=== PATIENT | female | born 1965 | race Caucasian/White ===

== ENCOUNTER → 2018-03-03 08:36 | Outpatient (POV) | payer BC, SELFPAY | PROVIDERS: Visit Provider Dermatology | DX: Z00.00 Encounter for general adult medical examination without abnormal findings (principal) ==

== ENCOUNTER → 2018-09-28 15:44 | Outpatient (CLI) | payer BC, SELFPAY ==
--- NOTE | 2018-09-28 15:45 | MM_ITS ---
MM Dig screening mamm BI w/CAD ORDERING PHYSICIAN : Chuck Santiago MD PATIENT AGE: 53 years GENDER: Female COMPARISON: July 2017 and April 2016 INDICATION: ITS.REASON: Routine Screening Mammogram no hormones. No new complaints. Noncontributory family history. TECHNIQUE: Standard CC and MLO images were obtained. R2 CAD reviewed. FINDINGS: Generalized fatty replacement Low-density breast bilaterally with no dominant mass nor suspicious cavitation either breast. No significant new findings. Bilateral follow-up in one year recommended. RIGHT BREAST:Minor nodular density at the retroareolar region of the right is stable since previous studies LEFT BREAST: But stable. No areas of concern. IMPRESSION: Stable bilateral mammogram. No new areas concern. Low-density fatty breast BI-RADS Category: 1 Negative RECOMMENDED FOLLOW-UP: 1YR 1 YEAR FOLLOW-UP (A letter has been sent to the patient regarding results of the study.)
== END ==
PROVIDERS: PCP Nurse Practitioner Obstetrics & Gynecology; Visit Provider Nurse Practitioner Obstetrics & Gynecology
DX: Z12.31 Encounter for screening mammogram for malignant neoplasm of breast (principal)
CPT/HCPCS: 77067

== ENCOUNTER → 2018-12-20 10:31 | Outpatient (POV) | payer BC, SELFPAY | PROVIDERS: Visit Provider Dermatology | DX: Z00.00 Encounter for general adult medical examination without abnormal findings (principal) ==

== ENCOUNTER → 2019-10-11 15:18 | Outpatient (CLI) | payer BC, SELFPAY ==
--- NOTE | 2019-10-11 15:19 | MM_ITS ---
PROCEDURE: MM DIG SCREENING MAMM BI W/CAD CLINICAL INDICATION: Routine Screening Mammogram There is no personal or family history of breast cancer. COMPARISON: [facility] DIG MAMM-SCREEN GIUSEPPE from 05/06/2016 [facility] DIG MAMM-SCREEN GIUSEPPE W/CAD from 08/18/2017 [facility] MM Dig screening mamm BI w/CAD from 09/28/2018 TECHNIQUE: Standard CC and MLO images were obtained. R2 CAD reviewed. FINDINGS: The breasts are composed primarily of fat with minimal scattered fibroglandular densities in each breast. There is a benign-appearing microcalcification right breast. There is no new or suspicious lesion in the breast and no suspicious microcalcifications. IMPRESSION: Fatty type breast parenchyma with no suspicious lesions seen BI-RAD Category: 2 Benign Finding(s) FOLLOW-UP: 1 Year Follow-up (A letter has been sent to the patient regarding results of the study.) Dictated by: Dr. Jan Garza MD 10/12/2019 15:[address] Jan Garza MD in [place] 10/12/2019 15:08
== END ==
PROVIDERS: PCP Physician Assistant; Visit Provider Nurse Practitioner Obstetrics & Gynecology
DX: Z12.31 Encounter for screening mammogram for malignant neoplasm of breast (principal)
CPT/HCPCS: 77067

== ENCOUNTER → 2020-10-16 10:47 | Outpatient (CLI) | payer BC, SELFPAY ==
--- NOTE | 2020-10-16 10:47 | MM_ITS ---
PROCEDURE: MM DIG SCREENING MAMM BI W/CAD Digital Breast Tomosynthesis Included CLINICAL INDICATION: screening xmg There is no personal or family history of breast cancer. The patient currently is on Premarin and estrogen. COMPARISON: MG [facility] DIG MAMM-SCREEN GIUSEPPE W/CAD from 08/18/2017 MG [facility] MM Dig screening mamm BI w/CAD from 09/28/2018 MG MM DIG SCREENING MAMM BI W/CAD from 10/11/2019 TECHNIQUE: Standard CC and MLO images and 3D Tomosynthesis was obtained. R2 CAD reviewed. FINDINGS: The breasts are composed primarily of fat with minimal scattered fibroglandular densities in each breast. There is a benign-appearing calcification in each breast. There is no suspicious lesion and no suspicious microcalcifications. IMPRESSION: The parenchyma with no suspicious lesions seen BI-RAD Category: 2 Benign Finding(s) FOLLOW-UP: 1YR 1 Year Follow-up (A letter has been sent to the patient regarding results of the study.) Dictated by: Dr. Jan Garza MD 10/19/2020 09:29 Dr. Jan Garza MD in [place] 10/19/2020 09:29
== END ==
PROVIDERS: PCP Physician Assistant; Visit Provider Nurse Practitioner Obstetrics & Gynecology
DX: Z12.31 Encounter for screening mammogram for malignant neoplasm of breast (principal)
CPT/HCPCS: 77063; 77067

== ENCOUNTER → 2020-11-06 10:24 | Outpatient (CLI) | payer BC, SELFPAY ==
--- NOTE | 2020-11-06 10:31 | XR_ITS ---
PROCEDURE: XR CERVICAL SPINE 2V CLINICAL INDICATION: NECK PAIN COMPARISON: No exams were available for comparison FINDINGS: No fracture or dislocation. No lytic or blastic change. There is normal mineralization. There is straightening of the cervical lordosis. There is mild degenerative disc disease at C5-C6. Other findings:None. IMPRESSION: Straightening of lordosis with mild degenerative disc disease at C5-C6 Dictated by: Renard Jones MD 11/06/2020 16:23 Renard Jones MD in [place] 11/06/2020 16:23
== END ==
PROVIDERS: PCP Physician Assistant; Visit Provider Physician Assistant
DX: M54.2 Cervicalgia (principal)
CPT/HCPCS: 72040

== ENCOUNTER → 2021-10-15 08:07 | Outpatient (CLI) | payer BC, SELFPAY ==
[2021-10-15 09:16] LABS: Free T4 (Free Thyroxine) 1.08 ng/dl (0.78-2.19)
[2021-10-15 09:27] LABS: Thyroid Stimulating Hormone 3.23 uIU/mL (0.465-4.68)
[2021-10-15 22:06] LABS: Chol/HDL Ratio 4.6 (1-3.5); Cholesterol 230 mg/dl (140-200); HDL Cholesterol 50 mg/dl (40-60); Triglycerides 190 mg/dl (30-150); VLDL Cholesterol 38 mg/dL (0-40)
== END ==
PROVIDERS: Physician Assistant; Visit Provider Internal Medicine
DX: E03.9 Hypothyroidism, unspecified (principal); E78.2 Mixed hyperlipidemia
CPT/HCPCS: 36415; 80061; 84439; 84443

== ENCOUNTER → 2021-10-29 12:50 | Outpatient (CLI) | payer BC, SELFPAY ==
--- NOTE | 2021-10-29 12:50 | MM_ITS ---
PROCEDURE INFORMATION: Exam: MG Bilateral Screening 3D Mammography Exam date and time: 10/29/2021 12:50 PM Age: 56 years old Clinical indication: Encounter for screening mammogram for malignant neoplasm of breast; Additional info: Abnormal xmg TECHNIQUE: Imaging protocol: Bilateral screening tomosynthesis and 2D mammography including computer-aided detection (CAD) when performed. COMPARISON: 1. MG MM DIG SCREENING MAMM BI W/CAD 10/16/2020 10:50 AM 2. MG MM DIG SCREENING MAMM BI W/CAD 10/11/2019 3:32 PM 3. MG [facility] MM Dig screening mamm BI w/CAD 09/28/2018 4:24 PM FINDINGS: MAMMOGRAPHY: Breast composition: There are scattered areas of fibroglandular density. Mass: No suspicious masses. Architectural distortion: No suspicious distortion. Calcifications: No suspicious calcifications. Asymmetric density: None. Skin thickening: None. Axillary adenopathy: None. IMPRESSION: No mammographic evidence of malignancy. Annual screening is recommended unless otherwise clinically indicated. ASSESSMENT: BI-RADS Category 1: Negative
== END ==
PROVIDERS: PCP Physician Assistant; Visit Provider Nurse Practitioner Obstetrics & Gynecology
DX: Z12.31 Encounter for screening mammogram for malignant neoplasm of breast (principal)
CPT/HCPCS: 77063; 77067

== ENCOUNTER → 2022-03-04 11:11 | Outpatient (CLI) | payer BC, SELFPAY ==
[2022-03-04 13:53] LABS: Free T4 (Free Thyroxine) 1.23 ng/dl (0.78-2.19)
== END ==
PROVIDERS: Visit Provider Internal Medicine
DX: E03.9 Hypothyroidism, unspecified (principal)
CPT/HCPCS: 36415; 84439; 84443

== ENCOUNTER → 2022-09-09 08:10 | Outpatient (CLI) | payer BC, SELFPAY ==
[2022-09-09 08:58] LABS: Basophils # 0.1 K/mm3 (0-0.2); Basophils % 1.6 % (0.1-2.0); Eosinophils # 0.1 K/mm3 (0.0-0.4); Eosinophils % 3.2 % (0.1-12.0); Hemoglobin 14.7 g/dL (12.2-16.2); Lymphocytes # 1.5 K/mm3 (0.7-4.5); Lymphocytes % 33.7 % (10-50); Mean Corpuscular HGB Conc 32.6 g/dL (31.8-35.4); Mean Corpuscular Hemoglobin 28.6 pg (27.0-31.2); Mean Corpuscular Volume 87.6 fl (81-99); Mean Platelet Volume 7.8 fl (7.4-10.4); Monocytes # 0.3 K/mm3 (0.1-1.0); Monocytes % 6.4 % (1.7-9.3); Neutrophils # 2.5 K/mm3 (1.8-7.8); Neutrophils % 55.1 % (37.0-80.0); Platelet Count 247 K/mm3 (142-424); Red Blood Count 5.14 M/mm3 (4.20-5.40); Red Cell Distribution Width 14.2 % (11.5-17.5); White Blood Count 4.6 K/mm3 (4.8-10.8)
[2022-09-09 09:40] LABS: Chloride 102 mmol/L (98-107); Potassium 4.6 mmoL/L (3.5-5.1); Sodium 139 mmol/L (136-145)
[2022-09-09 09:42] LABS: Alanine Aminotransferase 21 U/L (12-78); Alkaline Phosphatase 98 U/L (38-126); Aspartate Amino Transferase 23 U/L (14-36); Blood Urea Nitrogen 19 mg/dl (7-17); Estimated Glomerular Filt Rate 86 ml/min (>60); GFR (African American) 104 ML/MIN (>60)
[2022-09-09 09:43] LABS: Albumin Level 4.3 g/dl (3.5-5.0); Albumin/Globulin Ratio 1.5 (1.1-1.8); Anion Gap 12.6 mEq/L (5-15); Bilirubin,Total 0.1 mg/dl (0.2-1.3); Calcium 9.2 mg/dl (8.4-10.2); Carbon Dioxide 29 mmol/L (22.0-30.0); Cholesterol 292 mg/dl (140-200); Globulin 2.8 g/dL (1.3-3.2); Glucose 97 mg/dl (74-100); Total Protein,Serum 7.1 g/dl (6.3-8.2); Triglycerides 177 mg/dl (30-150); VLDL Cholesterol 35 mg/dL (0-40)
[2022-09-09 09:54] LABS: Direct LDL Cholesterol 145.18 mg/dL (100-129)
[2022-09-09 10:00] LABS: Free T4 (Free Thyroxine) 1.08 ng/dl (0.78-2.19)
[2022-09-09 10:57] LABS: Thyroid Stimulating Hormone 0.75 uIU/mL (0.465-4.68)
[2022-09-09 11:16] LABS: Vitamin B12 974 pg/mL (239-931)
[2022-09-09 12:13] LABS: HDL Cholesterol 58 mg/dl (40-60)
== END ==
PROVIDERS: Physician Assistant; PCP Family Medicine; Visit Provider Internal Medicine
DX: E03.9 Hypothyroidism, unspecified (principal); I10 Essential (primary) hypertension; E78.1 Pure hyperglyceridemia; E53.8 Deficiency of other specified B group vitamins
CPT/HCPCS: 36415; 80053; 80061; 82607; 84439; 84443; 85025

== ENCOUNTER → 2022-11-04 12:45 | Outpatient (CLI) | payer BC, SELFPAY ==
--- NOTE | 2022-11-04 12:46 | MM_ITS ---
PROCEDURE INFORMATION: Exam: MG Bilateral Screening 3D Mammography Exam date and time: 11/04/2022 12:47 PM Age: 57 years old Clinical indication: Screening examination TECHNIQUE: Imaging protocol: Bilateral Screening tomosynthesis and 2D mammography including computer-aided detection (CAD) when performed. COMPARISON: 1. MG MM DIG SCREENING MAMM BI W/CAD 10/29/2021 1:02 PM 2. MG MM DIG SCREENING MAMM BI W/CAD 10/16/2020 10:50 AM FINDINGS: MAMMOGRAPHY: Breast composition: The breasts are almost entirely fatty. Mass: None. Architectural distortion: None. Calcifications: No suspicious calcifications. Asymmetric density: None. Skin thickening: None. Axillary adenopathy: None. IMPRESSION: No mammographic evidence of malignancy. Annual screening is recommended unless otherwise clinically indicated. ASSESSMENT: BI-RADS Category 1: Negative
== END ==
PROVIDERS: PCP Family Medicine; Visit Provider Nurse Practitioner Obstetrics & Gynecology
DX: Z12.31 Encounter for screening mammogram for malignant neoplasm of breast (principal)
CPT/HCPCS: 77063; 77067

== ENCOUNTER → 2023-03-06 11:20 | Outpatient (CLI) | payer BC, SELFPAY ==
[2023-03-06 13:45] LABS: Free T4 (Free Thyroxine) 1.16 ng/dl (0.78-2.19)
[2023-03-06 14:00] LABS: Thyroid Stimulating Hormone 1.31 uIU/mL (0.465-4.68)
== END ==
PROVIDERS: PCP Physician Assistant; Visit Provider Internal Medicine
DX: E03.9 Hypothyroidism, unspecified (principal)
CPT/HCPCS: 36415; 84439; 84443

== ENCOUNTER 2023-12-29 14:30 | Outpatient (CLI) | payer BC, SELFPAY ==
--- NOTE | 2023-12-29 14:32 | MM_ITS ---
PROCEDURE INFORMATION: Exam: MG Bilateral Screening 3D Mammography Exam date and time: 12/29/2023 2:26 PM Age: 58 years old Clinical indication: Screening examination TECHNIQUE: Imaging protocol: Bilateral Screening tomosynthesis and 2D mammography including computer-aided detection (CAD) when performed. COMPARISON: 1. MG MM DIG SCREENING MAMM BI W/CAD 11/04/2022 12:47 PM 2. MG MM DIG SCREENING MAMM BI W/CAD 10/29/2021 1:02 PM FINDINGS: MAMMOGRAPHY: Breast composition: The breasts are almost entirely fatty. Mass: None. Architectural distortion: None. Calcifications: No suspicious calcifications. Asymmetric density: None. Skin thickening: None. Axillary adenopathy: None. IMPRESSION: No mammographic evidence of malignancy. Annual screening is recommended unless otherwise clinically indicated. ASSESSMENT: BI-RADS Category 1: Negative
== END 2023-12-29 23:59 ==
LOC: RAD 14:32
PROVIDERS: PCP Physician Assistant; Visit Provider Nurse Practitioner Obstetrics & Gynecology
DX: Z12.31 Encounter for screening mammogram for malignant neoplasm of breast (principal)
CPT/HCPCS: 77063; 77067

== ENCOUNTER 2024-01-17 13:10 | Outpatient (CLI) | payer BC, SELFPAY ==
[2024-01-17 13:16] LABS: Microscopic, Urine URINE MICROSCOPIC (MICROSCOPIC)
[2024-01-17 14:35] LABS: Appearance,Urine CLOUDY (Clear); Bilirubin,Urine Negative (Negative); Blood, Urine 3+ (Negative); Color,Urine YELLOW (Yellow); Glucose,Urine (UA) Negative (Negative); Ketones,Urine Negative (Negative); Leukocyte Esterase,Urine 1+ (Negative); Nitrate,Urine POSITIVE (Negative); Protein,Urine 2+ (Negative); Specific Gravity, Urine >= 1.030 (1.005-1.030)
[2024-01-17 16:28] LABS: Bacteria,Urine 2+ /lpf; RBC,Urine 20-50 #/hpf (0-3)
== END 2024-01-17 23:59 ==
LOC: LAB 13:10
PROVIDERS: PCP Physician Assistant; Visit Provider Nurse Practitioner Obstetrics & Gynecology
DX: N39.0 Urinary tract infection, site not specified (principal); B96.29 Other Escherichia coli [E. coli] as the cause of diseases classified elsewhere
CPT/HCPCS: 81001; 87086

== ENCOUNTER 2024-05-31 14:51 | Outpatient (CLI) | payer BC, SELFPAY | END 2024-05-31 23:59 | disposition home or self-care (01) | LOC: RT 14:51 | PROVIDERS: PCP Physician Assistant; Visit Provider Nurse Practitioner Family | DX: R07.89 Other chest pain (principal); R06.02 Shortness of breath; R00.2 Palpitations; R94.31 Abnormal electrocardiogram [ECG] [EKG] | CPT/HCPCS: 93270 ==

== ENCOUNTER 2024-06-21 10:50 | Outpatient (CLI) | payer BC, SELFPAY ==
--- NOTE | 2024-06-21 11:07 | CA_ITS ---
FINAL REPORT CLINICAL HISTORY: .HTN COMPARISON: None FINDINGS: RIGHT CAROTID: CCA PSV -54 cm/sec ICA PSV -102 cm/sec ICA/CCA PSV ratio -1.98. Comments: Mild plaque disease is noted. LEFTCAROTID: CCA PSV -71. cm/sec ICA PSV -94. cm/sec ICA/CCA PSV ratio -1.96. Comments: Mild plaque disease is noted. Antegrade flow is seen within the vertebral arteries. IMPRESSION: Carotid stenosis classified less than 50% Reviewed, Interpreted and Dictated by Cassius Massey MD Transcribed by Teena Willingham Authenticated and [facility]
== END 2024-06-21 23:59 | disposition home or self-care (01) ==
LOC: RT 10:51
PROVIDERS: PCP Physician Assistant; Visit Provider Nurse Practitioner Family
DX: I20.89 Other forms of angina pectoris (principal); I10 Essential (primary) hypertension; R07.9 Chest pain, unspecified; R06.02 Shortness of breath
CPT/HCPCS: 93880

== ENCOUNTER 2024-06-22 06:21 | Outpatient (CLI) | payer BC, SELFPAY ==
--- NOTE | 2024-06-22 | CA_ITS ---
APPROVED REPORT Exam: Exercise Treadmill Technologist: Brie Castellanos, Ht: 5 ft 6 in Wt: 245 lbs BSA: 2.18 m2 HR: 80 bpm BP: 146/77 mmHg Medical History Medications: Aspirin,,,,, Synthroid,,,,, Losartan,,,,, Vit D3,,,,, B12,,,,, Magnesium OXIDE,,,,, RoSUVASTATIN,,,,, Omepazole,,,,, Vascepa,,,,, DuPILUMAB,,,,, Venlafaxine eR,,,,, WEgovy,,,,, Stress Test Details Test: Momo HR Resting HR: 100 bpm Max Heart Rate (APMHR): 161 bpm Max HR Achieved: 156 bpm Target HR (85% APMHR): 137 bpm % of APMHR: 97 Recovery HR: 100 bpm HR response to stress: Normal HR response to stress BP Resting BP: 125.0/80.0 mmHg Max BP: 197.0/84.0 mmHg Recovery BP: 167.0/73.0 mmHg BP response to stress: Normal blood pressure response to stress. ECG Resting ECG: NSR Stress EC.[address] depression Arrhythmia: None Clinical Exercise duration: 06:32 min Highest Stage Achieved: III Exercise capacity: 7.0 METs Overall Exercise Capacity for Age: Average Stress ECG Conclusion Walked 6:32 on Momo Protocol. Max HR: 156 % of PM: 97% Max BP: 197/84 METs: 7.0 Test stopped due to: SOA Symptoms: No CP. Arrhythmias/Ectopy: None ST-T Changes: 0.[address] depression Conclusion: Average exercise capacity. ECG demonstrating no evidence of ischemia at peak stress. Normal GXT. Myoview images reported separately. Test Summary REST . . . . . . . Sitting REST . . . . . . . Standing REST 04:35 0.0 0.0 100 . 125/ 80 . . Stage 1 01:00 10.0 1.7 112 . . . . Stage 1 02:00 10.0 1.7 123 . . . . Stage 1 03:00 10.0 1.7 127 . 168/ 82 . . Stage 2 01:00 12.0 2.5 140 . . . . Stage 2 02:00 12.0 2.5 144 . . . . Stage 2 03:00 12.0 2.5 149 . . . . Stage 3 00:32 14.0 3.4 155 . . . Stop exercise at 06:32 RECOVERY 01:00 0.0 0.0 136 . . . . RECOVERY 02:00 0.0 0.0 115 . . . . RECOVERY 03:00 0.0 0.0 104 . 197/ 84 . . RECOVERY 04:00 0.0 0.0 98 . 186/ 79 . . RECOVERY 05:00 0.0 0.0 100 . 186/ 79 . . RECOVERY 05:35 0.0 0.0 94 . 167/ 73 . . Electronically signed by : Katie Santo MD 06/22/2024 12:01:43
--- NOTE | 2024-06-22 06:21 | CA_ITS ---
APPROVED REPORT EXAM: Comprehensive 2D, Doppler, and color-flow Echocardiogram Integration Engineer: Krystal Osuna CRT Ht: 5 ft 6 in Wt: 245lbs BSA: 2.18 BP: 151/88 mmHg Indications: Abnormal ECG, Chest Pain, Shortness of Breath, Palpitations, Hyperlipidemia, Hypertension/HDD 2D Dimensions Left Atrium 3.62 cm LVEF (Murray's) 57.60 % LVOT 1.91 cm (M/F) 1.5-2.5 LV Volume 59.90 mL LA Volume 22.00 mL LA Volume Index 10.10 mL/m2 (M/F) 16-34 EF AP4 59.80 % EF AP2 51.0 % EF BP 57.6 % GL Strain -18.6 % M-Mode Dimensions RVDd 2.45 cm (0.9-2.6) LVDd 4.41 cm (3.5-5.7) Ao Diam 3.57 cm (2.0-3.7) LVDs 3.23 cm (3.5-5.7) IVSd 0.98 cm (0.6-1.1) PWd 1.05 cm (0.6-1.1) EF (Teich) 52.50% FS 26.80% EDV (Teich) 88.20 mL TAPSE 2.04 (<1.7) ESV (Teich) 41.90 mL LV Diastology E Decel Time 181 (160-240 msec) E/A Ratio 0.50 MED E' 6.9 (>= 7 cm/sec) MED A' 10.20 cm/s E'/MED E' Ratio 7.07 (<= 14) LAT E' 7.4 (>= 10 cm/sec) LAT A' 10.10 cm/s E/LAT E' Ratio 6.59 (<= 14) Aortic Valve AoV Peak Alfonso. 156.0 (50-130 cm/s) AO Peak GR. 9.80 mmHg Mitral Valve MV E Max Alfonso. 49.0 (40-130 cm/s) MV A Velocity 97.0 (40-130 cm/s) E/A Ratio 0.50 MV Decel. Time 181 (160-240 ms) Tricuspid Valve TR P. Velocity 194.00 cm/s RAP Estimate 10.00 mmHg RVSP 25.10 mmHg Left Ventricle The left ventricle is normal size. The left ventricular systolic function is normal. The left ventricular ejection fraction is within the normal range. There is increased LV wall thickness. There is normal LV segmental wall motion. Transmitral Doppler flow pattern suggests impaired LV relaxation. LVEF is 60%. Right Ventricle The right ventricle is normal size. The right ventricular systolic function is normal. Atria The left atrium size is normal. The right atrium size is normal. There is no Doppler evidence of interatrial shunt. Aortic Valve The aortic valve opens well. There is no aortic valvular stenosis. No aortic regurgitation is present. Mitral Valve The mitral valve is normal in structure. No evidence of mitral valve stenosis. Mild mitral regurgitation. Tricuspid Valve The tricuspid valve leaflets are thin and pliable. Trace tricuspid regurgitation. There is insufficient TR jet to estimate RVSP. Pulmonic Valve The pulmonary valve is normal in structure. Trace pulmonic regurgitation. Great Vessels The aortic root is normal in size. The ascending aorta is not well-visualized. IVC is normal in size and collapses >50% with inspiration. Pericardium There is no pericardial effusion. Other Information Study Quality: Fair Conclusion Normal biventricular systolic function. Mild MR. Electronically signed by : Katie Santo MD 06/22/2024 11:47:50
--- NOTE | 2024-06-22 06:25 | NM_ITS ---
APPROVED REPORT Exam: Nuclear Stress Test Indication: soa..palpitationsa..fatigue Patient Location: Outpatient Stress Tech: Brie SEBASTIAN Tech:Latasha TravisZENAIDA RT(R)(N) Ht: 5 ft 6 in Wt: 235 lbs Bra Size: 40d HR: 100 bpm BP: 125/80 mmHg BSA: 2.14 m2 TID: 0.99 BMI: 37.9 History: soa..palpitationsa..fatigue Procedure: Patient exercised on Momo protocol 6:32 minutes and sec, resting heart rate 100 bpm, resting blood pressure 125/80 mmHg, with exercise maximum heart rate achived was 156 bpm which is 97 % of the maximum predicted heart rate and blood pressure was 197/84 mmHg. Test was stopped due to fatigue. Patient denied any complaint of chest pain. Patient has exercise capacity, achieved 7.0 METs of workload on treadmill, the blood pressure response to exercise was . Cardiac Stress and Resting SPECT Images: Cardiac Stress and Resting SPECT images were obtained using technetium 99m Myoview 31.0 mCi stress and 10.27 mCi at rest. Resting and stress imaging in supine and prone positions demonstrate no evidence of fixed or reversible perfusion defects. Gated imaging demonstrates normal global and regional LV systolic function. LVEF is calculated at 60%. Conclusion: No evidence of fixed or reversible perfusion defects. Gated imaging demonstrates normal global and regional LV systolic function. LVEF is calculated at 60%. Electronically signed by : Katie Santo MD 06/22/2024 12:02:35
[2024-06-22] MEDS: SODIUM CHLORIDE 0.9% 10ML SYR (RAD ONLY) 10 ML IV ×2 (09:46→09:47)
[2024-06-22] MEDS: ISOTOPE MYOVIEW (PER STUDY) 1 DOSE IV (09:46)
== END 2024-06-22 23:59 | disposition home or self-care (01) ==
LOC: RAD 06:21
PROVIDERS: PCP Physician Assistant; Visit Provider Nurse Practitioner Family
DX: R07.89 Other chest pain (principal); R06.02 Shortness of breath; R00.2 Palpitations; R94.31 Abnormal electrocardiogram [ECG] [EKG]
CPT/HCPCS: 78452; 93017; 93018; 93306; A9502

== ENCOUNTER 2025-01-03 13:44 | Outpatient (CLI) | payer BC, SELFPAY ==
--- NOTE | 2025-01-03 13:44 | MM_ITS ---
PROCEDURE INFORMATION: Exam: MG Bilateral Screening 3D Mammography Exam date and time: 01/03/2025 1:56 PM Age: 59 years old Clinical indication: Screening examination. TECHNIQUE: Imaging protocol: Bilateral Screening tomosynthesis and 2D mammography including computer-aided detection (CAD) when performed. COMPARISON: 1. MG MM DIG SCREENING MAMM BI W/CAD 12/29/2023 2:26 PM 2. MG MM DIG SCREENING MAMM BI W/CAD 11/04/2022 12:47 PM FINDINGS: MAMMOGRAPHY: Breast composition: The breasts are almost entirely fatty. Mass: None. Architectural distortion: None. Calcifications: No suspicious calcifications. Asymmetric density: None. Skin thickening: None. Axillary adenopathy: None. IMPRESSION: No mammographic evidence of malignancy. Annual screening is recommended unless otherwise clinically indicated. ASSESSMENT: BI-RADS Category 1: Negative.
== END 2025-01-03 23:59 | disposition home or self-care (01) ==
LOC: RAD 13:44
PROVIDERS: PCP Physician Assistant; Visit Provider Nurse Practitioner Obstetrics & Gynecology
DX: Z12.31 Encounter for screening mammogram for malignant neoplasm of breast (principal)
CPT/HCPCS: 77063; 77067

== ENCOUNTER 2025-06-06 08:46 | Outpatient (CLI) | payer BC, SELFPAY ==
--- NOTE | 2025-06-06 08:49 | XR_ITS ---
FINAL REPORT CLINICAL HISTORY: SCREENING COMPARISON: None FINDINGS: Using L1-4, the bone mineral density of the spine is 0.937 g/cm2, corresponding to T-score of -1.0, within normal limits. Using the left hip, the bone mineral density of the femoral neck is 0.733 g/cm2, corresponding to a T-score of -1.0, within normal limits. Using the right hip, the bone mineral density of the femoral neck is 0.791 g/cm2, corresponding to a T-score of -0.5, within normal limits. FRAX not reported because all T-scores at or above -1.0. NOTE: T-score: Standard deviation compared with peak bone mass of young adult mean. *Following the recommendations of the International Society of Bone densitometry, classification of hip BMD is based on the lower of two T-scores; total hip or femoral neck. IMPRESSION: Normal bone mineral density of the lumbar spine and hips. Reviewed, Interpreted and Dictated by Arnulfo Killian MD Transcribed by Miranda Clark Authenticated and [facility]
== END 2025-06-06 23:59 | disposition home or self-care (01) ==
LOC: RAD 08:47
PROVIDERS: PCP Physician Assistant; Visit Provider Physician Assistant
DX: Z13.820 Encounter for screening for osteoporosis (principal)
CPT/HCPCS: 77080